=== PATIENT | female | born 1945 ===

== ENCOUNTER 2022-06-10 10:10 | Emergency (ER) | payer SELFPAY ==
[2022-06-10 11:42] VITALS: BP 187/71; PULSE 87; RESP 20; TEMP 36.5; O2SAT 96
[2022-06-10 12:42] VITALS: BP 178/79; PULSE 78; RESP 16; TEMP 36.6; O2SAT 95
--- NOTE | 2022-06-10 13:35 | PC.NURSE ---
Patient left department. Patient informed of risks of leaving and states they did not want to wait.
== END 2022-06-10 13:35 | disposition left against medical advice (07) ==
DX: I10 Essential (primary) hypertension (principal)
CPT/HCPCS: 99199